=== PATIENT | female | born 1995 | race Caucasian/White ===

== ENCOUNTER 2018-12-14 22:31 | Emergency (ER) | payer MEDICAID ==
[~2018-12-14] VITALS: Ht 160 cm; Wt 84.0 kg
[2018-12-15] MEDS ORDERED: HYDROCODONE/ACETAMINOPHEN 5/325MG TABLET PO ONE (00:30)
[2018-12-15 02:40] VITALS: BP 127/71
== END 2018-12-15 02:41 | disposition home or self-care (01) ==
LOC: ER 22:31
DX: S93.401A Sprain of unspecified ligament of right ankle, initial encounter (principal); W19.XXXA Unspecified fall, initial encounter; Y93.01 Activity, walking, marching and hiking; Y92.89 Other specified places as the place of occurrence of the external cause; Y99.8 Other external cause status
CPT/HCPCS: 73610; 81025; 99283; Z7610